=== PATIENT | male | born 1990 | race Caucasian/White ===

== ENCOUNTER 2017-12-13 15:01 | Inpatient (IN) | payer MEDICAID, OTHER, SELFPAY ==
[~2017-12-13] VITALS: Ht 182.9 cm; Wt 70.0 kg
[2017-12-13 16:10] LABS: BASOPHILS % (AUTO) 0.4 % (0.0-2.0); EOSINOPHILS % (AUTO) 0.4 % (1.0-6.0); HEMATOCRIT 41.3 % (41-53); HEMOGLOBIN 14.3 g/dL (13.5-17.5); LYMPHOCYTES # (AUTO) 2.8 K/uL (1.0-4.8); LYMPHOCYTES % (AUTO) 27.3 % (22.0-44.0); MEAN CORPUSCULAR HEMOGLOBIN 30.3 pg (26.0-34.0); MEAN CORPUSCULAR HGB CONC 34.6 G/dL (31.0-37.0); MEAN CORPUSCULAR VOLUME 88 fL (80-100); MONOCYTES # (AUTO) 0.6 K/uL (0.1-1.0); MONOCYTES % (AUTO) 6.1 % (2.0-9.0); NEUTROPHILS # (AUTO) 6.8 K/uL (1.8-7.7); NEUTROPHILS % (AUTO) 65.8 % (40.0-70.0); PLATELET COUNT (AUTO) 289 K/uL (150-450); RED BLOOD CELL COUNT(AUTO) 4.72 MIL/uL (4.50-5.90); RED CELL DISTRIBUTION WIDTH 13.2 % (11.5-14.5)
[2017-12-13 16:24] LABS: ANION GAP 7 mmol/L (8-16); CARBON DIOXIDE 29 mmol/L (22-29); CHLORIDE 103 mmol/L (98-107); CREATININE 0.95 mg/dL (0.60-1.30); GLOMERULAR FILTR. RATE CALC > 60 mL/min (>60); GLUCOSE,RANDOM 76 mg/dL (70-110); POTASSIUM 4.1 mmol/L (3.5-5.1); SODIUM SERUM 139 mmol/L (136-145); UREA NITROGEN, BLOOD 13 mg/dL (7-18)
[2017-12-13 16:29] LABS: ALANINE AMINOTRANSFERASE 27 U/L (12-78); ALBUMIN 4.3 g/dL (3.4-5.0); ALKALINE PHOSPHATASE 98 U/L (46-116); ASPARTATE AMINOTRANSFERASE 43 U/L (15-37); BILIRUBIN,TOTAL 0.8 mg/dL (0.1-1.0); TOTAL PROTEIN, SERUM 7.6 g/dL (6.4-8.2)
[2017-12-13 16:40] LABS: AMPHET/METH SCREEN,URINE NEGATIVE (NEGATIVE); BARBITURATE SCREEN, URINE NEGATIVE (NEGATIVE); BENZODIAZEPINES SCREEN,URINE NEGATIVE (NEGATIVE); CANNABINOID SCREEN,URINE POSITIVE (NEGATIVE); COCAINE SCREEN,URINE NEGATIVE (NEGATIVE); METHADONE SCREEN, URINE NEGATIVE (NEGATIVE); OPIATE SCREEN,URINE NEGATIVE (NEGATIVE); PHENCYCLIDINE SCREEN,URINE NEGATIVE (NEGATIVE)
[2017-12-13] MEDS ORDERED: HALOPERIDOL 5 MG TABLET PO PRN (19:00)
[2017-12-13] MEDS ORDERED: ZOLPIDEM TARTRATE 10 MG TABLET PO PRN (19:00)
[2017-12-13] MEDS ORDERED: LORazepam 2 MG TABLET PO PRN (19:00)
[2017-12-13 19:05] LABS: APPEARANCE,URINE CLOUDY (CLEAR); BILIRUBIN,URINE NEGATIVE (NEGATIVE); GLUCOSE, URINE (UA) NEGATIVE (NEGATIVE); KETONES,URINE 40 mg/dL (NEGATIVE); LEUKOCYTE ESTERASE ,URINE NEGATIVE (NEGATIVE); NITRATE,URINE NEGATIVE (NEGATIVE); OCCULT BLOOD,URINE NEGATIVE (NEGATIVE); PH,URINE 5.5 (5.0-8.0); PROTEIN,URINE TRACE (NEGATIVE); UROBILINOGEN,URINE 0.2 mg/dL (<=1.0)
[2017-12-13 19:42] LABS: CHOL/HDL RATIO 2.1 (4.2-7.3); CHOLESTEROL 140 mg/dL (131-200); FREE T4 (FREE THYROXINE) 1.03 ng/dL (0.76-1.46); HDL CHOLESTEROL 67 mg/dL (40-60); LDL CHOL (CALC.) 68 mg/dL (0-130); TRIGLYCERIDES 26 mg/dL (15-150)
[2017-12-13 21:34] VITALS: BP 123/75
[2017-12-13 21:43] VITALS: BP 123/75
[2017-12-14 05:38] VITALS: BP 125/95
[2017-12-14 08:46] VITALS: BP 121/72
[2017-12-14] MEDS ORDERED: MAGNESIUM HYDROXIDE SUSPENSION 30 ML UDCUP PO PRN (09:00)
[2017-12-14] MEDS ORDERED: BACITRACIN 28.4 GM OINTMENT TP PRN (09:00)
[2017-12-14] MEDS ORDERED: ALBUTEROL SULFATE HFA 90 MCG/PUFF 8 GM INHALER IH PRN (09:00)
[2017-12-14] MEDS ORDERED: BENZOCAINE/MENTHOL LOZENGE MM PRN (09:00)
[2017-12-14] MEDS ORDERED: MAG HYDROX/AL HYDROX/SIMETH ES 30 ML SUSPENSION UDCUP PO PRN (09:00)
[2017-12-14] MEDS ORDERED: ONDANSETRON HCL 4 MG TABLET PO PRN (09:00)
[2017-12-14] MEDS ORDERED: ACETAMINOPHEN 325 MG TABLET PO PRN (09:00)
[2017-12-14] MEDS ORDERED: CloNIDine HCL 0.1 MG TABLET PO PRN (09:00)
[2017-12-14] MEDS ORDERED: LOPERAMIDE HCL 2 MG CAPSULE PO PRN (09:00)
[2017-12-14] MEDS ORDERED: IBUPROFEN 600 MG TABLET PO PRN (09:00)
[2017-12-14] MEDS ORDERED: PETROLATUM,WHITE 71 GM JELLY TP PRN (09:00)
[2017-12-14 16:37] VITALS: BP 110/63
[2017-12-14] MEDS: OLANZapine 10 MG TABLET PO SCH (20:22)
[2017-12-15 06:12] VITALS: BP 125/69
[2017-12-15 08:12] VITALS: BP 122/72
[2017-12-15 16:20] VITALS: BP 122/66
[2017-12-15] MEDS: OLANZapine 10 MG TABLET PO SCH (20:24)
[2017-12-16 06:28] VITALS: BP 136/67
[2017-12-16 07:57] VITALS: BP 136/77
[2017-12-16] MEDS ORDERED: OLAN10TA20 PO (10:16)
== END 2017-12-16 11:33 | disposition home or self-care (01) | DRG 750 ==
LOC: EMS 15:02 → B3A 18:56
DX: F20.0 Paranoid schizophrenia (principal); F17.200 Nicotine dependence, unspecified, uncomplicated; F12.10 Cannabis abuse, uncomplicated; G47.00 Insomnia, unspecified; Z71.6 Tobacco abuse counseling
CPT/HCPCS: 84439; 84443; 99285; G0480

== ENCOUNTER 2018-02-22 13:58 | Emergency (ER) | payer MEDICAID, OTHER ==
[~2018-02-22] VITALS: Ht 182.9 cm; Wt 68.2 kg
[~2018-02-22 13:58] MED LIST: OLAN10TA20 PO
[2018-02-22] MEDS ORDERED: IBUPROFEN 400 MG TABLET PO ONE (18:15)
[2018-02-22] MEDS ORDERED: PERTUSS(ACELL),DIPH,TET VAC/PF 0.5 ML VIAL IM ONE (18:15)
[2018-02-22] MEDS ORDERED: BACITRACIN 0.9 GM PACKET OINTMENT TP ONE (18:15)
[2018-02-22] MEDS ORDERED: LIDOCAINE HCL/PF 1% 5 ML VIAL INJ ONE (18:15)
[2018-02-22 19:22] VITALS: BP 115/51
== END 2018-02-22 20:00 | disposition home or self-care (01) ==
LOC: EMS 13:58
DX: S41.112A Laceration without foreign body of left upper arm, initial encounter (principal); W45.8XXA Other foreign body or object entering through skin, initial encounter; Y93.89 Activity, other specified; Y92.89 Other specified places as the place of occurrence of the external cause; Y99.8 Other external cause status
CPT/HCPCS: 12002; 90471; 90715; 99283; J3490

== ENCOUNTER 2020-03-19 16:49 | Emergency (ER) | payer OTHER ==
[~2020-03-19] VITALS: Ht 170.2 cm; Wt 68.2 kg
[2020-03-19] MEDS ORDERED: TraMADol HCL 50 MG TABLET PO ONE (17:15)
[2020-03-19 18:44] VITALS: BP 141/83
== END 2020-03-19 19:00 | disposition home or self-care (01) ==
LOC: EMS 16:49
DX: S62.316A Displaced fracture of base of fifth metacarpal bone, right hand, initial encounter for closed fracture (principal); F17.210 Nicotine dependence, cigarettes, uncomplicated; X50.9XXA Other and unspecified overexertion or strenuous movements or postures, initial encounter; Y93.89 Activity, other specified; Y92.89 Other specified places as the place of occurrence of the external cause; Y99.8 Other external cause status
CPT/HCPCS: 99406; 73110-TC; 73130-TC; Z7502; Z7610

== ENCOUNTER 2020-03-20 07:46 | Emergency (ER) | payer OTHER ==
[~2020-03-20] VITALS: Ht 182.9 cm; Wt 69.1 kg
[2020-03-20] MEDS ORDERED: IBUPROFEN 600 MG TABLET PO ONE (11:15)
[2020-03-20 11:35] VITALS: BP 136/93
== END 2020-03-20 11:42 | disposition home or self-care (01) ==
LOC: EMS 07:49
DX: S62.316A Displaced fracture of base of fifth metacarpal bone, right hand, initial encounter for closed fracture (principal); X58.XXXA Exposure to other specified factors, initial encounter; Y93.89 Activity, other specified; Y92.89 Other specified places as the place of occurrence of the external cause; Y99.8 Other external cause status

== ENCOUNTER 2020-06-29 12:00 | Emergency (ER) | payer OTHER ==
[~2020-06-29] VITALS: Ht 172.7 cm; Wt 68.2 kg
[2020-06-29 12:55] VITALS: BP 129/91
== END 2020-06-29 12:57 | disposition home or self-care (01) ==
LOC: EMS 12:00
DX: A69.1 Other Vincent's infections (principal); K12.30 Oral mucositis (ulcerative), unspecified; F17.210 Nicotine dependence, cigarettes, uncomplicated; F19.90 Other psychoactive substance use, unspecified, uncomplicated

== ENCOUNTER 2020-07-25 23:05 | Emergency (ER) | payer OTHER ==
[~2020-07-25] VITALS: Ht 182.9 cm; Wt 69.1 kg
[2020-07-26 01:00] VITALS: BP 119/78
== END 2020-07-26 01:25 | disposition home or self-care (01) ==
LOC: EMS 23:07
DX: F15.10 Other stimulant abuse, uncomplicated (principal); F17.210 Nicotine dependence, cigarettes, uncomplicated; F12.90 Cannabis use, unspecified, uncomplicated
CPT/HCPCS: Z7502

== ENCOUNTER 2020-10-05 19:13 | Emergency (ER) | payer OTHER ==
[~2020-10-05] VITALS: Ht 182.9 cm; Wt 70.9 kg
[2020-10-05 19:21] VITALS: BP 126/77
== END 2020-10-05 20:24 | disposition home or self-care (01) ==
LOC: EMS 19:15
DX: B00.9 Herpesviral infection, unspecified (principal); F17.210 Nicotine dependence, cigarettes, uncomplicated; F12.90 Cannabis use, unspecified, uncomplicated; F15.90 Other stimulant use, unspecified, uncomplicated
CPT/HCPCS: 99283; Z7502

== ENCOUNTER 2021-09-10 00:56 | Emergency (ER) | payer OTHER ==
[~2021-09-10] VITALS: Ht 182.9 cm; Wt 71.8 kg
[2021-09-10 01:19] VITALS: BP 120/83
== END 2021-09-10 03:24 | disposition home or self-care (01) ==
LOC: EMS 00:58
DX: Z11.3 Encounter for screening for infections with a predominantly sexual mode of transmission (principal); F41.9 Anxiety disorder, unspecified; F12.90 Cannabis use, unspecified, uncomplicated; F15.90 Other stimulant use, unspecified, uncomplicated; F17.210 Nicotine dependence, cigarettes, uncomplicated
CPT/HCPCS: 99281; Z7502

== ENCOUNTER 2022-05-20 01:10 | Emergency (ER) | payer OTHER ==
[~2022-05-20] VITALS: Ht 182.9 cm; Wt 73.6 kg
[2022-05-20 01:12] VITALS: BP 116/78
[2022-05-20] MEDS ORDERED: TRAZ-252 PO (01:16)
[2022-05-20] MEDS ORDERED: RISP1TAB48 PO (01:16)
[2022-05-20] MEDS ORDERED: IBUP-2070 PO (08:46)
[2022-05-20] MEDS ORDERED: RALT400T PO (09:11)
[2022-05-20] MEDS ORDERED: EMTR1TAB53 PO (09:11)
== END 2022-05-20 01:51 | disposition left against medical advice (07) ==
LOC: EMS 01:12
DX: Z53.21 Procedure and treatment not carried out due to patient leaving prior to being seen by health care provider (principal)

== ENCOUNTER 2022-05-20 07:56 | Emergency (ER) | payer OTHER ==
[~2022-05-20] VITALS: Ht 182.9 cm; Wt 75.0 kg
[~2022-05-20 07:56] MED LIST changes: -OLAN10TA20 PO; +RISP1TAB48 PO; +TRAZ-252 PO
[2022-05-20 08:41] LABS: BASOPHILS % (AUTO) 0.5 % (0.0-2.0); EOSINOPHILS % (AUTO) 0.4 % (1.0-6.0); HEMATOCRIT 43.7 % (41-53); HEMOGLOBIN 14.8 g/dL (13.5-17.5); LYMPHOCYTES # (AUTO) 3.2 K/uL (1.0-4.8); LYMPHOCYTES % (AUTO) 32.1 % (22.0-44.0); MEAN CORPUSCULAR HEMOGLOBIN 30.6 pg (26.0-34.0); MEAN CORPUSCULAR HGB CONC 33.8 G/dL (31.0-37.0); MEAN CORPUSCULAR VOLUME 90 fL (80-100); MONOCYTES # (AUTO) 0.8 K/uL (0.1-1.0); MONOCYTES % (AUTO) 7.9 % (2.0-9.0); NEUTROPHILS # (AUTO) 5.8 K/uL (1.8-7.7); NEUTROPHILS % (AUTO) 59.1 % (40.0-70.0); PLATELET COUNT (AUTO) 326 K/uL (150-450); RED BLOOD CELL COUNT(AUTO) 4.83 MIL/uL (4.50-5.90); RED CELL DISTRIBUTION WIDTH 13.4 % (11.5-14.5)
[2022-05-20] MEDS ORDERED: IBUP-2070 PO (08:46)
[2022-05-20 08:50] LABS: ANION GAP 6 mmol/L (8-16); CARBON DIOXIDE 28 mmol/L (22-29); CHLORIDE 101 mmol/L (98-107); CREATININE 1.14 mg/dL (0.60-1.30); GLUCOSE,RANDOM 97 mg/dL (70-110); POTASSIUM 3.8 mmol/L (3.5-5.1); SODIUM SERUM 135 mmol/L (136-145); UREA NITROGEN, BLOOD 21 mg/dL (7-18)
[2022-05-20 08:51] LABS: GLOMERULAR FILTR. RATE CALC > 60 mL/min (>60)
[2022-05-20 08:56] LABS: ALANINE AMINOTRANSFERASE 34 U/L (12-78); ALBUMIN 4.3 g/dL (3.4-5.0); ALKALINE PHOSPHATASE 82 U/L (46-116); ASPARTATE AMINOTRANSFERASE 30 U/L (15-37); BILIRUBIN,TOTAL 0.9 mg/dL (0.1-1.0); TOTAL PROTEIN, SERUM 7.5 g/dL (6.4-8.2)
[2022-05-20] MEDS ORDERED: RALT400T PO (09:11)
[2022-05-20] MEDS ORDERED: EMTR1TAB53 PO (09:11)
[2022-05-20] MEDS ORDERED: EMTRICITABINE/TENOFOVIR 200-300 MG TABLET PO ONE (09:15)
[2022-05-20] MEDS ORDERED: RALTEGRAVIR 400 MG TABLET PO ONE (09:15)
[2022-05-20 09:32] VITALS: BP 129/84
[2022-05-21 08:06] LABS: HIV 1-2 SCREEN 4TH GEN W/RFLX Non Reactive (Non Reactive)
== END 2022-05-20 09:36 | disposition home or self-care (01) ==
LOC: EMS 08:01
DX: Z11.59 Encounter for screening for other viral diseases (principal)
CPT/HCPCS: 80053; 85025; 87389; 99283

== ENCOUNTER 2022-12-09 11:05 | Emergency (ER) | payer OTHER ==
[~2022-12-09] VITALS: Ht 177.8 cm; Wt 77.3 kg
[~2022-12-09 11:05] MED LIST changes: +EMTR1TAB53 PO; +RALT400T PO
[2022-12-09 11:23] VITALS: BP 142/84
[2022-12-09 11:58] LABS: BASOPHILS % (AUTO) 0.6 % (0.0-2.0); EOSINOPHILS % (AUTO) 1.4 % (1.0-6.0); HEMATOCRIT 47.5 % (41-53); HEMOGLOBIN 15.8 g/dL (13.5-17.5); LYMPHOCYTES # (AUTO) 5.3 K/uL (1.0-4.8); LYMPHOCYTES % (AUTO) 40.1 % (22.0-44.0); MEAN CORPUSCULAR HEMOGLOBIN 29.6 pg (26.0-34.0); MEAN CORPUSCULAR HGB CONC 33.3 G/dL (31.0-37.0); MEAN CORPUSCULAR VOLUME 89 fL (80-100); MONOCYTES # (AUTO) 1.3 K/uL (0.1-1.0); MONOCYTES % (AUTO) 9.7 % (2.0-9.0); NEUTROPHILS # (AUTO) 6.4 K/uL (1.8-7.7); NEUTROPHILS % (AUTO) 48.2 % (40.0-70.0); PLATELET COUNT (AUTO) 406 K/uL (150-450); RED BLOOD CELL COUNT(AUTO) 5.35 MIL/uL (4.50-5.90); RED CELL DISTRIBUTION WIDTH 13.3 % (11.5-14.5)
[2022-12-09 12:07] LABS: CARBON DIOXIDE 22 mmol/L (22-29); CHLORIDE 98 mmol/L (98-107); POTASSIUM 3.7 mmol/L (3.5-5.1); SODIUM SERUM 137 mmol/L (136-145)
[2022-12-09 12:08] LABS: ANION GAP 17 mmol/L (8-16); CALCIUM, TOTAL 10.1 mg/dL (8.8-10.5); CREATININE 1.96 mg/dL (0.60-1.30); GLOMERULAR FILTR. RATE CALC 40 mL/min (>60); GLUCOSE,RANDOM 125 mg/dL (70-110); UREA NITROGEN, BLOOD 24 mg/dL (7-18)
[2022-12-09 12:14] LABS: ALANINE AMINOTRANSFERASE 24 U/L (12-78); ALKALINE PHOSPHATASE 94 U/L (46-116); ASPARTATE AMINOTRANSFERASE 33 U/L (15-37); BILIRUBIN,TOTAL 1.3 mg/dL (0.1-1.0); TOTAL PROTEIN, SERUM 8.6 g/dL (6.4-8.2)
[2022-12-09] MEDS ORDERED: SODIUM CHLORIDE 0.9% 1,000 ML IV ONE (13:00)
== END 2022-12-09 14:01 | disposition left against medical advice (07) ==
LOC: EMS 11:06
DX: F15.10 Other stimulant abuse, uncomplicated (principal); F41.9 Anxiety disorder, unspecified; F32.A Depression, unspecified; F20.9 Schizophrenia, unspecified; F17.210 Nicotine dependence, cigarettes, uncomplicated; F12.90 Cannabis use, unspecified, uncomplicated
CPT/HCPCS: 99284; 96360; 71045; 80053; 85025; 36415; G0480; J7030

== ENCOUNTER 2022-12-09 15:15 | Emergency (ER) | payer OTHER ==
[~2022-12-09] VITALS: Ht 182.9 cm; Wt 81.8 kg
[2022-12-09] MEDS ORDERED: SODIUM CHLORIDE 0.9% 1,000 ML IV ONE (15:30)
[2022-12-09 16:06] LABS: ANION GAP 11 mmol/L (8-16); CALCIUM, TOTAL 9.5 mg/dL (8.8-10.5); CARBON DIOXIDE 27 mmol/L (22-29); CHLORIDE 96 mmol/L (98-107); CREATININE 1.37 mg/dL (0.60-1.30); GLOMERULAR FILTR. RATE CALC > 60 mL/min (>60); GLUCOSE,RANDOM 123 mg/dL (70-110); POTASSIUM 3.5 mmol/L (3.5-5.1); SODIUM SERUM 134 mmol/L (136-145); UREA NITROGEN, BLOOD 26 mg/dL (7-18)
[2022-12-09 16:12] LABS: CREATINE KINASE, TOTAL ONLY 693 U/L (39-308)
[2022-12-09 16:30] VITALS: BP 110/64
== END 2022-12-09 16:43 | disposition home or self-care (01) ==
LOC: EMS 15:17
DX: N17.9 Acute kidney failure, unspecified (principal); F15.10 Other stimulant abuse, uncomplicated; F20.0 Paranoid schizophrenia; F41.9 Anxiety disorder, unspecified; F32.A Depression, unspecified; F17.210 Nicotine dependence, cigarettes, uncomplicated; F12.90 Cannabis use, unspecified, uncomplicated
CPT/HCPCS: 99283; 96360; 80048; 82550; 36415; J7030

== ENCOUNTER 2023-12-21 18:06 | Inpatient (IN) | payer MEDICAID, OTHER ==
[~2023-12-21] VITALS: Ht 180.3 cm; Wt 72.2 kg
[~2023-12-21 18:06] MED LIST changes: -EMTR1TAB53 PO; -RALT400T PO; -TRAZ-252 PO
[2023-12-21 20:24] LABS: BASOPHILS % (AUTO) 0.3 % (0.0-2.0); EOSINOPHILS % (AUTO) 0.2 % (1.0-6.0); HEMATOCRIT 41.3 % (41-53); HEMOGLOBIN 13.8 g/dL (13.5-17.5); LYMPHOCYTES # (AUTO) 2.9 K/uL (1.0-4.8); LYMPHOCYTES % (AUTO) 18.9 % (22.0-44.0); MEAN CORPUSCULAR HGB CONC 33.4 G/dL (31.0-37.0); MEAN CORPUSCULAR VOLUME 90 fL (80-100); MONOCYTES # (AUTO) 1.2 K/uL (0.1-1.0); MONOCYTES % (AUTO) 7.9 % (2.0-9.0); NEUTROPHILS % (AUTO) 72.7 % (40.0-70.0); PLATELET COUNT (AUTO) 384 K/uL (150-450); RED BLOOD CELL COUNT(AUTO) 4.59 MIL/uL (4.50-5.90); RED CELL DISTRIBUTION WIDTH 13.3 % (11.5-14.5); WHITE BLOOD COUNT (AUTO) 15.1 K/uL (4.5-11.0)
[2023-12-21 20:36] LABS: ANION GAP 10 mmol/L (8-16); CALCIUM, TOTAL 8.9 mg/dL (8.8-10.5); CARBON DIOXIDE 24 mmol/L (22-29); CHLORIDE 104 mmol/L (98-107); CREATININE 1.07 mg/dL (0.60-1.30); GLOMERULAR FILTR. RATE CALC > 60 mL/min (>60); GLUCOSE,RANDOM 102 mg/dL (70-110); POTASSIUM 3.9 mmol/L (3.5-5.1); SODIUM SERUM 138 mmol/L (136-145); UREA NITROGEN, BLOOD 11 mg/dL (7-18)
[2023-12-21 20:42] LABS: ALANINE AMINOTRANSFERASE 27 U/L (12-78); ALBUMIN 4.3 g/dL (3.4-5.0); ALCOHOL, BLOOD (SERUM) < 3 mg/dL (0-10); ALKALINE PHOSPHATASE 102 U/L (46-116); ASPARTATE AMINOTRANSFERASE 33 U/L (15-37); BILIRUBIN,TOTAL 0.8 mg/dL (0.1-1.0); TOTAL PROTEIN, SERUM 7.6 g/dL (6.4-8.2)
[2023-12-21 21:10] LABS: PH,URINE DRUG SCREEN 5.5 (5.0-8.0)
[2023-12-21 21:17] LABS: ALCOHOL, URINE DRUG SCREEN NEGATIVE (NEGATIVE); AMPHET/METH SCREEN,URINE POSITIVE (NEGATIVE); BARBITURATE SCREEN, URINE NEGATIVE (NEGATIVE); BENZODIAZEPINES SCREEN,URINE NEGATIVE (NEGATIVE); CANNABINOID SCREEN,URINE POSITIVE (NEGATIVE); COCAINE SCREEN,URINE NEGATIVE (NEGATIVE); METHADONE SCREEN, URINE NEGATIVE (NEGATIVE); OPIATE SCREEN,URINE NEGATIVE (NEGATIVE); PHENCYCLIDINE SCREEN,URINE NEGATIVE (NEGATIVE)
[2023-12-21] MEDS ORDERED: LORazepam 2 MG/ML VIAL ONE (21:29)
[2023-12-21] MEDS ORDERED: DiphenhydrAMINE HCL 50 MG/ML VIAL ONE (21:30)
[2023-12-21] MEDS ORDERED: HALOPERIDOL LACTATE 5 MG/ML VIAL ONE (21:30)
[2023-12-21] MEDS: DiphenhydrAMINE HCL 50 MG/ML VIAL IM ONE (21:37)
[2023-12-21] MEDS: LORazepam 2 MG/ML VIAL IM ONE (21:38)
[2023-12-21] MEDS: HALOPERIDOL LACTATE 5 MG/ML VIAL IM ONE (21:38)
[2023-12-21] MEDS: PERTUSS(ACELL),DIPH,TET/PF 0.5 ML SYRINGE [ADULT] IM. ONE (22:34)
[2023-12-21] MEDS: LIDOCAINE 1% 10 ML VIAL ID ONE (22:35)
[2023-12-21] MEDS: SODIUM CHLORIDE 0.9% 250 ML IRRIG SOLUTION BOTTLE IRRIG ONE (22:35)
[2023-12-21 23:13] LABS: COVID AG,FIA SOURCE NASAL SWAB
[2023-12-21 23:32] LABS: SARS-COV2 (COVID) ANTIGEN,FIA Negative (Negative)
[2023-12-22] MEDS ORDERED: HALOPERIDOL 5 MG TABLET PO PRN (02:00)
[2023-12-22] MEDS ORDERED: LORazepam 2 MG TABLET PO PRN (02:00)
[2023-12-22 04:10] VITALS: BP 108/66; PULSE 67; RESP 18; TEMP 97.5; O2SAT 97
[2023-12-22] MEDS ORDERED: IBUPROFEN 600 MG TABLET PO PRN (06:00)
[2023-12-22] MEDS ORDERED: ALBUTEROL SULFATE HFA 90 MCG/PUFF 8 GM INHALER IH PRN (06:00)
[2023-12-22] MEDS ORDERED: CloNIDine HCL 0.1 MG TABLET PO PRN (06:00)
[2023-12-22] MEDS ORDERED: BENZOCAINE/MENTHOL LOZENGE PO PRN (06:00)
[2023-12-22] MEDS ORDERED: OMEPRAZOLE 20 MG CAPSULE PO PRN (06:00)
[2023-12-22] MEDS ORDERED: DOCUSATE SODIUM 100 MG CAPSULE PO PRN (06:00)
[2023-12-22] MEDS ORDERED: MAGNESIUM HYDROXIDE SUSPENSION 30 ML UDCUP PO PRN (06:00)
[2023-12-22] MEDS ORDERED: ACETAMINOPHEN 325 MG TABLET PO PRN (06:00)
[2023-12-22] MEDS ORDERED: ONDANSETRON HCL 4 MG TABLET PO PRN (06:00)
[2023-12-22] MEDS ORDERED: LOPERAMIDE HCL 2 MG CAPSULE PO PRN (06:00)
[2023-12-22] MEDS ORDERED: MAG HYDROX/ALUMINUM HYD/SIMETH ES 30 ML SUSPENSION UDCUP PO PRN (06:00)
[2023-12-22] MEDS ORDERED: PETROLATUM,WHITE 28 GM JELLY TP PRN (06:00)
[2023-12-22] MEDS ORDERED: BACITRACIN 28 GM OINTMENT TP PRN (06:00)
[2023-12-22 09:44] VITALS: BP 98/64; PULSE 74; RESP 18; TEMP 98; O2SAT 98
[2023-12-22 09:53] VITALS: BP 98/64; PULSE 74; RESP 18; TEMP 98.2
[2023-12-22 21:51] VITALS: BP 127/74; PULSE 85; RESP 18; TEMP 97.7; O2SAT 100
[2023-12-23 07:38] LABS: BASOPHILS % (AUTO) 0.4 % (0.0-2.0); EOSINOPHILS % (AUTO) 2.6 % (1.0-6.0); HEMATOCRIT 39.4 % (41-53); HEMOGLOBIN 13.3 g/dL (13.5-17.5); LYMPHOCYTES # (AUTO) 3.7 K/uL (1.0-4.8); LYMPHOCYTES % (AUTO) 41.2 % (22.0-44.0); MEAN CORPUSCULAR HEMOGLOBIN 30.5 pg (26.0-34.0); MEAN CORPUSCULAR HGB CONC 33.8 G/dL (31.0-37.0); MEAN CORPUSCULAR VOLUME 90 fL (80-100); MONOCYTES # (AUTO) 0.8 K/uL (0.1-1.0); MONOCYTES % (AUTO) 9.4 % (2.0-9.0); NEUTROPHILS # (AUTO) 4.1 K/uL (1.8-7.7); NEUTROPHILS % (AUTO) 46.4 % (40.0-70.0); PLATELET COUNT (AUTO) 350 K/uL (150-450); RED BLOOD CELL COUNT(AUTO) 4.36 MIL/uL (4.50-5.90); RED CELL DISTRIBUTION WIDTH 12.9 % (11.5-14.5); WHITE BLOOD COUNT (AUTO) 8.9 K/uL (4.5-11.0)
[2023-12-23 07:53] LABS: ALANINE AMINOTRANSFERASE 21 U/L (12-78); ALBUMIN 3.5 g/dL (3.4-5.0); ALKALINE PHOSPHATASE 93 U/L (46-116); ANION GAP 6 mmol/L (8-16); ASPARTATE AMINOTRANSFERASE 28 U/L (15-37); BILIRUBIN,TOTAL 0.6 mg/dL (0.1-1.0); CALCIUM, TOTAL 8.6 mg/dL (8.8-10.5); CARBON DIOXIDE 29 mmol/L (22-29); CHLORIDE 105 mmol/L (98-107); CREATININE 1.19 mg/dL (0.60-1.30); GLOMERULAR FILTR. RATE CALC > 60 mL/min (>60); GLUCOSE,RANDOM 96 mg/dL (70-110); PHOSPHORUS 3.8 mg/dL (2.5-4.9); POTASSIUM 3.9 mmol/L (3.5-5.1); SODIUM SERUM 140 mmol/L (136-145); TOTAL PROTEIN, SERUM 6.5 g/dL (6.4-8.2); UREA NITROGEN, BLOOD 14 mg/dL (7-18)
[2023-12-23 10:48] VITALS: BP 107/60; PULSE 76; RESP 18; TEMP 99; O2SAT 97
[2023-12-23] MEDS: NICOTINE 21 MG/24 HOUR PATCH TD SCH (14:51)
[2023-12-23 21:16] VITALS: BP 104/61; PULSE 63; RESP 18; TEMP 97.8; O2SAT 97
[2023-12-24 09:22] VITALS: BP 106/76; PULSE 82; RESP 19; TEMP 97.4; O2SAT 97
[2023-12-24] MEDS: RisperiDONE 3 MG TABLET PO SCH (17:51)
[2023-12-24 21:03] VITALS: BP 116/62; PULSE 70; RESP 18; TEMP 97.1; O2SAT 99
[2023-12-24] MEDS: BENZTROPINE MESYLATE 2 MG TABLET PO SCH (21:04)
[2023-12-25 08:46] VITALS: BP 115/58; PULSE 58; RESP 16; TEMP 97.7; O2SAT 98
[2023-12-25 23:00] VITALS: BP 112/57; PULSE 70; RESP 18; TEMP 97; O2SAT 98
[2023-12-26 16:59] VITALS: BP 91/51; PULSE 87; RESP 18; TEMP 98; O2SAT 87
[2023-12-26 20:34] VITALS: BP 115/75; PULSE 72; RESP 18; TEMP 98; O2SAT 98
[2023-12-26] MEDS: ZOLPIDEM TARTRATE 10 MG TABLET PO PRN (21:43)
[2023-12-27 08:59] VITALS: BP 118/69; PULSE 86; RESP 16; TEMP 97.9; O2SAT 97
[2023-12-27 23:16] VITALS: BP 117/68; PULSE 73; RESP 18; TEMP 97.3; O2SAT 100
[2023-12-27 23:23] VITALS: BP 117/68; PULSE 73; RESP 18; TEMP 97.3; O2SAT 100
[2023-12-28 09:56] VITALS: BP 145/88; PULSE 83; RESP 18; TEMP 98.3; O2SAT 98
[2023-12-28] MEDS ORDERED: BENZ2TAB71 PO (10:40)
== END 2023-12-28 14:00 | disposition home or self-care (01) | DRG 750 ==
LOC: EMS 18:06 → 3EI 12-22 03:03
PROVIDERS: ADMIT Psychiatry & Neurology Psychiatry; ATTEND Psychiatry & Neurology Psychiatry
PROC: 0HQ7XZZ Repair Abdomen Skin, External Approach (ICD-10-PCS; principal; 2023-12-22)
DX: F25.9 Schizoaffective disorder, unspecified (principal); R45.851 Suicidal ideations; Z91.148 Patient's other noncompliance with medication regimen for other reason; D72.829 Elevated white blood cell count, unspecified; F12.90 Cannabis use, unspecified, uncomplicated; S31.119A Laceration without foreign body of abdominal wall, unspecified quadrant without penetration into peritoneal cavity, initial encounter; F17.200 Nicotine dependence, unspecified, uncomplicated; Z20.822 Contact with and (suspected) exposure to COVID-19; F31.9 Bipolar disorder, unspecified; F41.9 Anxiety disorder, unspecified; G47.00 Insomnia, unspecified; X58.XXXA Exposure to other specified factors, initial encounter; Z79.899 Other long term (current) drug therapy; Y93.89 Activity, other specified; Y92.89 Other specified places as the place of occurrence of the external cause; Y99.8 Other external cause status
CPT/HCPCS: 80053; 80307; 83735; 84100; 85025; 87081; 90715; 99285; G0480; J1200; J1630; J2060; J3490